=== PATIENT | female | born 2000 | race Caucasian/White ===

== ENCOUNTER 2022-07-29 08:53 | Inpatient (IN) | payer OTHER ==
[~2022-07-29] VITALS: Ht 160 cm; Wt 54.0 kg
[2022-07-29] MEDS ORDERED: PRENATAL TABLE1 EAC1 (09:36)
[2022-07-31] MEDS ORDERED: RHOGAM ULTR1500 UNIT IM (13:30)
== END 2022-07-31 15:50 | disposition home or self-care (01) | DRG 768 ==
LOC: LDR 08:53 → OB/GYN 20:52
PROVIDERS: ADMIT Obstetrics & Gynecology; ATTEND Obstetrics & Gynecology
PROC: 10E0XZZ Delivery of Products of Conception, External Approach (ICD-10-PCS; principal; 2022-07-29)
PROC: 0DQR0ZZ Repair Anal Sphincter, Open Approach (ICD-10-PCS; 2022-07-29)
PROC: 0W8NXZZ Division of Female Perineum, External Approach (ICD-10-PCS; 2022-07-29)
PROC: 4A1HXCZ Monitoring of Products of Conception, Cardiac Rate, External Approach (ICD-10-PCS; 2022-07-29)
DX: O70.21 Third degree perineal laceration during delivery, IIIa (principal); Z37.0 Single live birth; Z3A.38 38 weeks gestation of pregnancy; Z20.822 Contact with and (suspected) exposure to COVID-19